=== PATIENT | female | born 1960 | race Hispanic/Latino ===

== ENCOUNTER 2021-05-26 09:09 | Emergency (ER) | payer OTHER, SELFPAY ==
--- NOTE | ~2021-05-26 | CT_ITS ---
EXAMINATION: CT brain wo con INDICATION: Head injury COMPARISON: None TECHNIQUE: Standard unenhanced head CT. The dose-length product (DLP) was 605.33 mGy-cm. The mA was a djusted according to patient size. Iterative reconstruction technique was employed. FINDINGS: There is no intracranial hemorrhage, acute infarction, or abnormal mass lesion. The ventric les are normal. There is no abnormal mass effect or midline shift. The betancourt-white matter differentiat ion is normal. The basal cisterns are patent. The orbits are normal. The paranasal sinuses, mastoids and calvarium are normal. IMPRESSION: 1. No acute intracranial abnormality. Reviewed, dictated and finalized at location A.
--- NOTE | ~2021-05-26 | XR_ITS ---
EXAMINATION: XR hip LT 2V w AP pelvis INDICATION: Left hip pain TECHNIQUE: AP view of the pelvis and two views of the left hip are obtained. COMPARISON: None available FINDINGS: Bone alignment is normal. There is no fracture. The soft tissues are unremarkable. There is curvature of the lumbar spine. IMPRESSION: 1. No acute osseous abnormality. Reviewed, dictated and finalized at location A.
[2021-05-26 09:04] VITALS: BP 109/72; PULSE 75; RESP 20; TEMP 36.7; O2SAT 98
--- NOTE | 2021-05-26 09:30 | ED.FALL ---
HPI - Fall General Chief Complaint: Fall Stated Complaint: FALL/ANXIETY Source: RN notes reviewed History of Present Illness HPI Narrative: Patient presents emergency department via EMS for fall. Patient states she was walking in the parking lot when she tripped on a and fell. She states she fell forward initially onto her hands and knees and rolled onto her back she denies striking her head or any loss of consciousness she notes pain in her left lateral and posterior hip states she does have a history of sciatica and this feels like a flareup of her sciatica she denies any vision changes, chest pain shortness of breath abdominal pain nausea vomiting or any other injuries Related Data Home Medications Medication Instructions Recorded Confirmed ergocalciferol (vitamin D2) WEEKLY 05/26/21 [Vitamin D2] levothyroxine [Synthroid] 112 mcg PO DAILY 05/26/21 nabumetone 750 mg PO DAILY 05/26/21 rosuvastatin [Crestor] 10 mg PO DAILY 05/26/21 Allergies Allergy/AdvReac Type Severity Reaction Status Date / Time No Known Allergies Allergy Verified 05/26/21 09:12 Review of Systems Review of Systems: Gen.: Denies fevers or chills Eyes: Denies eye pain or visual change ENT: Denies facial pain Respiratory: Denies shortness of breath CV: Denies chest pain GI: Denies abdominal pain nausea, emesis Musculoskeletal: See HPI Neuro: Denies numbness, tingling, weakness or focal weakness Skin: Denies rash Except as documented, all other systems reviewed and negative PMFSH Past Medical History Medical History (Updated 05/26/21 @ 11:37 by Loki Cerna DO) Patient denies significant medical history Social History Social History (Updated 05/26/21 @ 09:32 by Loki Cerna DO) Smoking status: Never smoker Exam Narrative: APPEARANCE: Well appearing, no apparent distress, well-nourished. HEENT: normocephalic atraumtaic. No facial tenderness EYES: PERRL NECK: Supple. No midline tenderness to palpation. Full range of motion without pain RESPIRATORY: No respiratory distress. Clear to auscultation bilaterally CARDIOVASCULAR: Regular rate and rhythm without murmurs rubs or gallops. ABDOMINAL: Soft, nontender, nondistended, no rebound or guarding MUSCULOSKELETAl: Moves all extremities. No tenderness to palpation of bilateral upper and right lower extremities. No clubbing cyanosis or edema tender palpation over the left lateral posterior hip no swelling or ecchymosis pain with flexion greater than 45 degrees no tenderness of the left knee or ankle, posterior tibialis pulse 2+ neurovascular Back: No midline thoracic or lumbar tenderness to palpation Pelvis: Stable, nontender NEURO: Awake and alert ?3. Follows commands. Speech normal. No focal deficits. SKIN:: Warm, dry. Normal Color Course Course Emergency Course: Patient able to get up and ambulate in ED no pain other than in left hip which is improved Family members present states that she discussed with a family friend who is been present the patient after she fell had had some twitching patient denies hitting her head but there was a concern of a head injury per EMS patient was very anxious on arrival obtain CT scan of the head Discussed with patient results of workup and diagnosis. Discussed need for follow-up with primary care, proper use of medication, and reasons to return to the emergency department. Patient understands and agrees to current treatment plan Vital Signs Vital signs: Vital Signs Temperature 98.1 F 05/26/21 09:04 Pulse Rate 75 05/26/21 09:04 Respiratory Rate 20 05/26/21 09:04 Blood Pressure 109/72 05/26/21 09:04 Pulse Oximetry 98 05/26/21 09:04 Temperature 97.8 F 05/26/21 09:55 Pulse Rate 69 05/26/21 09:55 Respiratory Rate 18 05/26/21 09:55 Blood Pressure 113/63 05/26/21 09:55 Pulse Oximetry 100 05/26/21 09:55 MDM - Fall Imaging Data Radiologist's impression: ITS Impressions Hip/Pelvis X-Ray 05/26
[2021-05-26] MEDS: HYDROcodone/acetaminophen (*CRX) 5-325 MG TABLET 1 TAB PO (09:54)
[2021-05-26 09:55] VITALS: BP 113/63; PULSE 69; RESP 16; RESP 18; TEMP 36.6; O2SAT 100; O2SAT 99
[2021-05-26] MEDS: KETOROLAC (*BKC) 60 MG/2 ML VIAL IM (10:19)
[2021-05-26 11:52] VITALS: BP 121/77; PULSE 69; RESP 18; TEMP 36.2; O2SAT 99
== END 2021-05-26 11:52 | disposition home or self-care (01) ==
PROVIDERS: Emergency Provider Emergency Medicine; PCP Internal Medicine
DX: S70.02XA Contusion of left hip, initial encounter (principal); W01.0XXA Fall on same level from slipping, tripping and stumbling without subsequent striking against object, initial encounter
CPT/HCPCS: 70450; 73502; 96372; 99284; A9270; J1885